=== PATIENT | male | born 1950 | race Caucasian/White ===

== ENCOUNTER 2018-03-22 16:57 | Emergency (ER) | payer OTHER ==
[2018-03-22 17:29] VITALS: BP 162/94; PULSE 85; TEMP 98.7; BMI 25.4
--- NOTE | 2018-03-22 17:39 | PDOC ---
History of Present Illness - General Chief Complaint: Injury Stated Complaint: FALL Time Seen by Provider: 03/22/18 17:06 History Source: Patient Exam Limitations: No Limitations - History of Present Illness Initial Comments: 03/22/18 19:37 67 yo M with a hx of HTN, HLD, and DM presents to the emergency department s/p fall that occurred today at 4 pm. Per the patient, he is in town from [place] for a . He was walking outside the door and tripped on the door step, landing his left chest wall against the mailbox. Antecedent to the event, he denies the following: fever, chills, nausea, vomiting, chest pain, SOB, visual changes, lightheadedness, and dizziness. Subsequent to the event, he developed 10/10 chest pain immediately in the left chest wall with movement, coughing, and deep breathing and has 0/10 pain when he lays still. Denies LOC and head trauma. Past History - Past Medical History Allergies/Adverse Reactions: Allergies Allergy/AdvReac Type Severity Reaction Status Date / Time lansoprazole [From Prevacid] Allergy Verified 03/22/18 17:25 omeprazole [From Prilosec] Allergy Verified 03/22/18 17:25 Home Medications: Ambulatory Orders Lidocaine 5% Patch [Lidoderm Patch -] 1 patch TP DAILY PRN #4 patch 03/22/18 COPD: Yes (cpap ant night) Diabetes: Yes HTN: Yes Hypercholesterolemia: Yes - Surgical History Abdominal Surgery: Yes (hernia) - Suicide/Smoking/Psychosocial Hx Smoking History: Former smoker Have you smoked in the past 12 months: No Information on smoking cessation initiated: No Hx Alcohol Use: No Drug/Substance Use Hx: No Review of Systems - Review of Systems Able to Perform ROS?: Yes Is the patient limited [place]er proficient: No Constitutional: No: Chills, Diaphoresis, Fever HEENTM: No: Eye Pain, Recent change in vision, Ear Pain, Nose Pain, Throat Pain , Mouth Pain Respiratory: No: Cough, Shortness of Breath, Hemoptysis Cardiac (ROS): Yes: Chest Pain. No: Lightheadedness, Palpitations, Syncope, Chest Tightness ABD/GI: No: Constipated, Diarrhea, Nausea, Rectal Bleeding, Vomiting, Tarry Stools : No: Burning, Dysuria, Hematuria, Urgency Musculoskeletal: No: Back Pain, Joint Pain, Neck Pain Integumentary: No: Bruising, Erythema, Rash Neurological: No: Headache, Numbness, Tingling, Tremors, Ataxia, Dizziness Psychiatric: No: Change in Appetite Endocrine: No: Excessive Sweating Hematologic/Lymphatic: No: Anemia *Physical Exam - Vital Signs Last Vital Signs Temp Pulse Resp BP Pulse Ox 98.7 F 85 20 162/94 97 03/22/18 17:25 03/22/18 17:25 03/22/18 17:25 03/22/18 17:25 03/22/18 17:25 - Physical Exam General Appearance: Yes: Nourished, Appropriately Dressed. No: Apparent Distress, Intoxicated HEENT: positive: EOMI, BANDAR, Normal Voice, Symmetrical, TMs Normal, Pharynx Normal, Hearing Grossly Normal. negative: Scleral Icterus (R), Scleral Icterus (L), Muffled/Hoarse voice, Pharyngeal Erythema, Tonsillar Exudate, Tonsillar Erythema, Nasal Congestion, Rhinorrhea, Excessive drooling Neck: positive: Trachea midline, Supple. negative: Tender, Lymphadenopathy (R) , Lymphadenopathy (L), Rigidity, Tender lateral, Tender midline Respiratory/Chest: positive: Chest Tender (left chest wall without crepitus. no clavicle disruption bilaterally), Lungs Clear, Normal Breath Sounds. negative: Respiratory Distress, Accessory Muscle Use Cardiovascular: positive: Regular Rhythm, Regular Rate, S1, S2. negative: Systolic Murmur Gastrointestinal/Abdominal: positive: Normal Bowel Sounds, Flat, Soft. negative : Tender Lymphatic: negative: Adenopathy Musculoskeletal: positive: Normal Inspection. negative: CVA Tenderness, Vertebral Tenderness Extremity: positive: Normal Capillary Refill, Normal Inspection, Normal Range of Motion. negative: Tender, Swelling, Calf Tenderness Integumentary: positive: Normal Color, Dry, Warm. negative: Rash, Swelling Neurologic: positive: curtain cutter II-XII NML intact, Fully Oriented, Alert, Normal Mood/ Affect, Normal Response, Motor Strength 5/5. negative: EOM Palsy, Facial Droop , Sensory Deficit Moderate Sedation - Procedure Monitoring Vital Signs: Procedure Monitoring Vital Signs Temperature 98.7 F 03/22/18 17:25 Pulse Rate 85 03/22/18 17:25 Respiratory Rate 20 03/22/18 17:25 Blood Pressure 162/94 03/22/18 17:25 O2 Sat by Pulse Oximetry (%) 97 03/22/18 17:25 Heart Score/ECG Review - ECG Intrepretation Comment:: Normal sinus rhythm. ventricular rate is 82 bpm with NC 148 ms, QTc is 441 ms, and QRS [address] ELEVATIONS OR depressions noted on EKG. ED Treatment Course - LABORATORY CBC & Chemistry Diagram: 03/22/18 17:55 03/22/18 17:55 Medical Decision Making - Medical Decision Making 67 yo M with a hx of HTN, HLD, and DM presents to the emergency department s/p fall that occurred today at 4 pm Initial vitals: Initial Vital Signs Temp Pulse Resp BP Pulse Ox 98.7 F 85 20 162/94 97 03/22/18 17:25 03/22/18 17:25 03/22/18 17:25 03/22/18 17:25 03/22/18 17:25 Work up: ddx: rib fracture vs chest contusion vs PTX vs ACS vs pulmonary contusion vs patient presented to the ED with chest pain that is only active with movement of the chest wall and 0/10 at rest. no flail chest noted on exam. likely this is contusion vs fracture of the ribs given the history and presentation. triage EKG was reassuring. Laboratory Tests 03/22/18 03/22/18 03/22/18 17:55 17:55 17:55 WBC 14.1 H RBC 4.65 Hgb 15.0 Hct 43.5 MCV 93.6 MCH 32.3 MCHC 34.6 RDW 13.7 Plt Count 210 MPV 9.3 Absolute Neuts (auto) 11.3 H Neutrophils % 79.8 Lymphocytes % 11.0 Monocytes % 5.1 Eosinophils % 3.8 Basophils % 0.3 Nucleated RBC % 0 Sodium 142 Potassium 4.0 Chloride 107 Carbon Dioxide 27 Anion Gap 9 BUN 21 H Creatinine 1.3 Creat Clearance w eGFR 54.73 Random Glucose 199 H Calcium 9.2 Troponin I < 0.02 troponin was negative. WBC likely elevated due to reactive. CT chest without contrast was ordered to assess for acute chest pathology. CT showed no acute fractures or acute pathologies. however, incidentally, a right middle lobe and minimal lingular focal interstitial thickening is seen which may be acute or chronic in nature with 2 month recommendation follow up suggested. The paitents pain was controlled with toradol and lidoderm patch. A copy of the CT report was given to the patient and was told to follow up with his PMD within 1 week for follow up on the chest wall pain and the abnormal CT findings. he was stable at discharge and his pain well controlled. he was able to ambulate on his own volition. Dispo: Discharge *DC/Admit/Observation/Transfer Diagnosis at time of Disposition: Musculoskeletal pain - Discharge Dispostion Disposition: HOME Decision to Admit order: No - Prescriptions Prescriptions: Lidocaine 5% Patch [Lidoderm Patch -] 1 patch TP DAILY PRN #4 patch PRN Reason: Pain - Referrals Referrals: [facility] [Provider Group] - Patient Instructions Printed Discharge Instructions: How to Prevent Falls Additional Instructions: you were seen in the ED after your fall. please follow up with your primary medical doctor or the one referred to you by us within 5 days after discharge for follow up care and management. please use your medication as directed. please return to the emergency department if you are unable to breathe, worsening chest pain, or new chest pain qualities. please follow up with your primary medical doctor with the CT findings in 2 months. please follow up with him. - Post Discharge Activity
[2018-03-22 18:08] LABS: BASO % 0.3 % (0-2.0); EOS % 3.8 % (0-4.5); HEMATOCRIT 43.5 % (35.4-49); MCH 32.3 pg (25.7-33.7); MCHC 34.6 g/dl (32.0-35.9); MEAN CELL VOLUME 93.6 fl (80-96); MEAN PLT VOLUME 9.3 fl (7.5-11.1); MONO % 5.1 % (3.8-10.2); NEUT % 79.8 % (42.8-82.8); PLATELET COUNT 210 K/MM3 (134-434); RBC 4.65 M/mm3 (4.00-5.60); RDW 13.7 % (11.9-15.9); WHITE BLOOD COUNT 14.1 K/mm3 (4.0-10.0)
[2018-03-22 18:27] LABS: ANION GAP 9 MMOL/L (8-16); BLOOD UREA NITROGEN 21 mg/dL (7-18); CALCIUM 9.2 mg/dL (8.5-10.1); CHLORIDE 107 mmol/L (98-107); CO2 27 mmol/L (21-32); CREATININE 1.3 mg/dL (0.55-1.3); GLUCOSE,RANDOM 199 mg/dL (74-106); SODIUM 142 mmol/L (136-145)
[2018-03-22] MEDS ORDERED: KETOROLAC TROMETHAMINE 30 MG/1 ML VIAL IM ONE (18:45)
[2018-03-22] MEDS ORDERED: LIDOCAINE 5% TOPICAL PATCH TP ONE (18:46)
[2018-03-22] MEDS ORDERED: KETOROLAC TROMETHAMINE 30 MG/1 ML VIAL ONE (19:24)
[2018-03-22] MEDS ORDERED: LIDOCAINE 5% TOPICAL PATCH ONE (19:24)
--- NOTE | 2018-03-22 19:43 | PDOC ---
Attending Attestation - Resident Resident Name: LaithSergio - ED Attending Attestation I have performed the following: I have examined & evaluated the patient, The case was reviewed & discussed with the resident, I agree w/resident's findings & plan - HPI HPI: 03/22/18 19:39 67 year old male with a PMH of AMADEO, HTN, HLD, and DM who presents to the emergency department for evaluation of left sided chest pain s/p mechanical fall. Patient reports tripping and falling down stairs outside and subsequently striking the anterior left side of chest against mailbox. Patient reports severe left sided chest pain ranked 10/10 in severity, which is exacerbated with movement of upper arms and deep breathing. Denies sob, abdominal pain, dizziness, and lightheadedness. 03/22/18 19:43 - Physicial Exam PE: 03/22/18 19:40 NAD, well appearing, PERRL, EOMI, MMM, nl conjunctiva, anicteric; neck supple. + left sided anterior chest wall tenderness, no crepitus. no ecchymosis or skin changes. lungs clear, RRR, abdomen soft nontender. PAULINO x4, no focal neuro deficits. No peripheral edema. normal color for ethnicity, WWP. - Medical Decision Making 03/22/18 19:39 hpi as documented VS wnl. reassuring, in pain with movements. ddx rib fx, pulm contusion, chest contusion, cardiac contusion. msk contusion,. PTX, hemothorax/effusion. labs and lytes wnl, trop neg ECG nonischemic analgesia here with topical lido, NSAID/tylenol. reassess. CT chest to r/o injuries/rib fx/ptx. negative study, without complications. breathing exercises and analgesia. pain control as appropriate. declines narcotics which is fine. lives back home in [place] with family, who will drive back in a few days. Pt informed of my clinical impression, treatment recommendations and disposition plan. All questions answered to patient's satisfaction and expressed understanding and comfort with this. Reasons for returning to the ED sooner discussed with the patient otherwise, follow up with primary care physician. At the time of discharge, the patient is alert, clinically improved, tolerating po and verbalizes understanding of instructions. Patient does not suffer from an acute life-threatening medical condition at this time she is safe for outpatient follow-up. 03/22/18 19:44 Heart Score/ECG Review - ECG Impressions Normal ECG: Yes Comment:: 03/22/18 19:41 EKG normal sinus rhythm, no interval abnormalities, narrow QRS, ST and T wave segments and morphology normal. Nonspecific T wave abnormalities
[2018-03-22] MEDS ORDERED: LIDOCAINE PATCH REMOVAL MC SCH (22:00)
--- NOTE | 2018-03-23 14:56 | EKG ---
Test Reason : Blood Pressure : / mmHG Vent. Rate : 082 BPM Atrial Rate : 082 BPM P-R Int : 148 ms QRS Dur : 090 ms QT Int : 378 ms P-R-T Axes : 061 -31 052 degrees QTc Int : 441 ms NORMAL SINUS RHYTHM LEFT AXIS DEVIATION ABNORMAL ECG NO PREVIOUS ECGS AVAILABLE Confirmed by THEO LEDEZMA, TRACI ([id number]) on 03/23/2018 2:55:34 PM Referred By: Confirmed By:TRACI VENEGAS MD
== END 2018-03-22 20:15 | disposition home or self-care (01) ==
LOC: JER 16:57
PROC: 3E0233Z Introduction of Anti-inflammatory into Muscle, Percutaneous Approach (ICD-10-PCS; principal; 2018-03-22)
DX: S20.212A Contusion of left front wall of thorax, initial encounter (principal); W01.198A Fall on same level from slipping, tripping and stumbling with subsequent striking against other object, initial encounter; Y93.89 Activity, other specified; Y92.29 Other specified public building as the place of occurrence of the external cause; Y99.8 Other external cause status; I10 Essential (primary) hypertension; E78.5 Hyperlipidemia, unspecified; E11.9 Type 2 diabetes mellitus without complications; G47.33 Obstructive sleep apnea (adult) (pediatric); Z99.89 Dependence on other enabling machines and devices
CPT/HCPCS: 36415; 71250-TC; 80048; 84484; 85025; 93005; 93010; 96372; 99282-25